=== PATIENT | male | born 1995 | race African-American/Black ===

== ENCOUNTER 2017-01-19 04:29 | Emergency (ER) | payer SELFPAY ==
[~2017-01-19] VITALS: Ht 175.3 cm; Wt 65.0 kg
[2017-01-19 04:31] VITALS: BP 123/56; PULSE 78; RESP 14; TEMP 98.7; O2SAT 99
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
[2017-01-19] MEDS ORDERED: TETANUS/DIPHTHERIA TOXOID ADULT 0.5 ML VIAL IM ONE (05:00)
[2017-01-19] MEDS ORDERED: IBUPROFEN 800 MG TAB PO ONE (05:00)
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
== END 2017-01-19 06:28 | disposition home or self-care (01) ==
LOC: NEPK 04:29
DX: S83.91XA Sprain of unspecified site of right knee, initial encounter (principal); S20.412A Abrasion of left back wall of thorax, initial encounter; S20.411A Abrasion of right back wall of thorax, initial encounter; Y09 Assault by unspecified means
CPT/HCPCS: 71010; 73564; 99284; E0113